=== PATIENT | male | born 1965 | race Two or more races ===

== ENCOUNTER 2021-11-24 14:15 | Inpatient (IN) | payer MEDICAID ==
[~2021-11-24] VITALS: Ht 167.6 cm; Wt 77.1 kg
[2021-11-24] MEDS ORDERED: ONDANSETRON HCL 4 MG/2 ML VIAL ONE (15:13)
[2021-11-24] MEDS ORDERED: MORPHINE SULFATE 4 MG/ML SYR/VIAL ONE (15:13)
[2021-11-24] MEDS ORDERED: ONDANSETRON HCL 4 MG/2 ML VIAL IV ONE (15:15)
[2021-11-24] MEDS ORDERED: MORPHINE SULFATE 4 MG/ML SYR/VIAL IV ONE (15:15)
[2021-11-24] MEDS ORDERED: LORazepam 2MG/ML-1ML VIAL IV ONE (15:45)
[2021-11-24 16:23] LABS: Basophils # (auto) 0.1 10 ^3/uL (0-0.2); Basophils % (auto) 0.5 % (0.0-2.0); Eosinophils # (auto) 0 10 ^3/uL (0-0.8); Eosinophils % (auto) 0.2 % (0.0-7.0); Hematocrit 43.5 % (41.0-53.0); Hemoglobin 14.5 g/dL (13.5-17.5); Lymphocytes % (auto) 10.7 % (10.0-50.0); Mean Corpuscular Hemoglobin 31.9 pg (28.0-32.0); Mean Corpuscular Hgb Conc. 33.3 g/dL (32.0-36.0); Mean Corpuscular Volume 95.8 fL (80.0-100.0); Monocytes # (auto) 0.8 10 ^3/uL (0-1.3); Monocytes % (auto) 4.1 % (0.0-12.0); Neutrophils # (auto) 15.9 10 ^3/uL (1.6-8.6); Neutrophils % (auto) 84.5 % (37.0-80.0); Red Blood Cells 4.54 10^6/uL (4.5-5.90); Red Cell Distribution Width 12.7 % (11.8-14.3); White Blood Cell 18.8 10^3/uL (4.4-10.8)
[2021-11-24 16:40] LABS: Albumin 3.9 g/dL (3.4-5.0); Calcium 8.5 mg/dL (8.5-10.1); Potassium 3.8 mmol/L (3.5-5.1)
[2021-11-24 16:41] LABS: Bilirubin, Total 0.4 mg/dL (0.2-1.0); Total Protein 7.2 g/dL (6.4-8.2)
[2021-11-24] MEDS ORDERED: ASPirin 81 mg TAB PO ONE (16:45)
[2021-11-24] MEDS ORDERED: cefTRIAXone 1GM/50ML D5W 50 ML IV ONE (16:45)
[2021-11-24] MEDS ORDERED: ENOXAPARIN SOD 80 MG/0.8ML SYRINGE SC ONE (17:00)
[2021-11-24] MEDS ORDERED: HYDROmorphone HCL 2 MG/ML VL/or syr IV ONE (17:15)
[2021-11-24] MEDS ORDERED: AZITHROMYCIN 500MG/ 250ML 250 ML IV ONE (18:15)
[2021-11-24] MEDS ORDERED: ACETAMINOPHEN 325 MG TAB PO PRN (19:00)
[2021-11-24] MEDS ORDERED: NITROGLYCERIN 0.4 MG SL TAB SL PRN (19:00)
[2021-11-24] MEDS ORDERED: DOCUSATE SOD 100 MG CAP PO PRN (19:00)
[2021-11-24] MEDS ORDERED: TEMAZEPAM 15 MG CAP PO PRN (19:00)
[2021-11-24] MEDS ORDERED: HYDROcodone-ACET 5/325MG TAB PO PRN (19:00)
[2021-11-24] MEDS ORDERED: ONDANSETRON HCL 4 MG/2 ML VIAL IV PRN (19:00)
[2021-11-24] MEDS ORDERED: MORPHINE SULFATE INJ 2 MG/ml SYRG IV PRN ×2 (19:00)
[2021-11-24] MEDS ORDERED: DEXTROSE (50%) 50ML SYRG IV PRN (19:00)
[2021-11-24 19:16] LABS: Lactic Acid w/Reflex 3.2 mmol/L (0.4-2.0)
[2021-11-24] MEDS ORDERED: METOPROLOL TARTRATE 1MG/1ML-5ML VIAL IV ONE ×2 (19:23→19:30)
[2021-11-24] MEDS ORDERED: AMIODARONE HCL (50 MG/ ML) 3 ML VIAL IV ONE (19:43)
[2021-11-24] MEDS ORDERED: AMIODARONE 450mg/250ml AE 250 ML IV ONE (19:46)
[2021-11-24] MEDS ORDERED: ACCU-CHEK COMFORT CURVE STRIP VI SCH (20:00)
[2021-11-24] MEDS ORDERED: AMIODARONE HCL 150 MG in D5W 5% 100 ML IV ONE (20:00)
[2021-11-24] MEDS ORDERED: InsuLIN REG 1unit/0.01ml Soln (100units/ml) SC SCH (20:00)
[2021-11-24] MEDS ORDERED: IOHEXOL 350 MG/ML 100ML IJ ONE ×2 (20:07→23:03)
[2021-11-24] MEDS ORDERED: AMIODARONE 450mg/250ml AE 250 ML IV SCH (20:15)
[2021-11-24] MEDS ORDERED: ASCORBIC ACID 500 MG TAB PO SCH (22:00)
[2021-11-24 22:46] VITALS: BP 106/70
[2021-11-24] MEDS ORDERED: fentaNYL CITRATE 100 MCG/2 ML VL ONE (22:59)
[2021-11-24] MEDS ORDERED: ATROPINE SULF 1 MG/10ml SYR ONE (22:59)
[2021-11-24] MEDS ORDERED: ANGIOMAX 250 MG VIAL IV ONE (22:59)
[2021-11-24] MEDS ORDERED: MIDAZOLAM HCL 2MG/2ML 2ml VIAL (1mg/ml) ONE (23:00)
[2021-11-24] MEDS ORDERED: SODIUM CHL 0.9% 50 ML ONE (23:00)
[2021-11-24] MEDS ORDERED: SUCCINYLCHOLINE CHLORIDE 20 MG/ML 10ML VIAL IV ONE (23:01)
[2021-11-24] MEDS ORDERED: ETOMIDATE (2MG/ML) 20ML VIAL IV ONE (23:01)
[2021-11-24] MEDS ORDERED: LIDOCAINE 2%HCL (LOCAL ANESTH.) INJ 10ml MDV ONE (23:03)
[2021-11-24] MEDS ORDERED: MIDAZOLAM DRIP 50 mg/50mL 50 ML IV ONE (23:18)
[2021-11-24 23:42] LABS: INR 1.05 (0.9-1.15); Partial Thromboplastin Time 27.8 sec (23.6-33.0)
[2021-11-24] MEDS ORDERED: HEPARIN SODIUM (PORCINE) 5000 UNITS/ML 1ML VIAL ONE (23:43)
[2021-11-25] MEDS ORDERED: IOHEXOL 350 MG/ML 100ML IJ ONE (00:06)
[2021-11-25] MEDS ORDERED: MIDAZOLAM DRIP 50 mg/50mL 50 ML IV SCH (00:08)
[2021-11-25] MEDS ORDERED: ATROPINE SULF 1 MG/10ml SYR ONE (00:16)
[2021-11-25] MEDS ORDERED: DOPamine 1600MCG/ML D5W 250 ML IV ONE (00:19)
[2021-11-25] MEDS ORDERED: NOREPINEPHRINE 8 MG/250ML KIT 0 ML IV ONE (00:23)
[2021-11-25] MEDS ORDERED: EPINEPHrine HCL 250 ML IV ONE (00:34)
[2021-11-25] MEDS ORDERED: SUCCINYLCHOLINE CHLORIDE 20 MG/ML 10ML VIAL IV ONE (04:45)
[2021-11-25] MEDS ORDERED: ETOMIDATE (2MG/ML) 20ML VIAL IV ONE (04:45)
[2021-11-25] MEDS ORDERED: ZINC SULFATE 220mg CAP or TAB PO SCH (10:00)
[2021-11-25] MEDS ORDERED: MULTIPLE VITAMIN TAB PO SCH (10:00)
[2021-11-25] MEDS ORDERED: SODIUM BICARBONATE 8.4% INJ 50ML SYRINGE IV ONE (13:59)
[2021-11-25] MEDS ORDERED: EPINEPHrine HCL 1 MG/10 ML SYRG IV ONE (13:59)
[2021-11-25] MEDS ORDERED: ATROPINE SULF 1 MG/10ml SYR IV ONE (13:59)
== END 2021-11-25 00:44 | DRG 174 ==
LOC: EDBD 14:15 → ER 14:15 → TELE 18:52
PROVIDERS: ADMIT Internal Medicine; ATTEND Internal Medicine
PROC: 027136Z Dilation of Coronary Artery, Two Arteries with Three Drug-eluting Intraluminal Devices, Percutaneous Approach (ICD-10-PCS; principal; 2021-11-25)
PROC: 5A02210 Assistance with Cardiac Output using Balloon Pump, Continuous (ICD-10-PCS; 2021-11-25)
PROC: 5A12012 Performance of Cardiac Output, Single, Manual (ICD-10-PCS; 2021-11-25)
PROC: B2111ZZ Fluoroscopy of Multiple Coronary Arteries using Low Osmolar Contrast (ICD-10-PCS; 2021-11-25)
DX: I21.3 ST elevation (STEMI) myocardial infarction of unspecified site (principal); I46.9 Cardiac arrest, cause unspecified; J96.01 Acute respiratory failure with hypoxia; E11.21 Type 2 diabetes mellitus with diabetic nephropathy; E11.40 Type 2 diabetes mellitus with diabetic neuropathy, unspecified; I47.2 Ventricular tachycardia; E11.65 Type 2 diabetes mellitus with hyperglycemia; E78.5 Hyperlipidemia, unspecified; F10.10 Alcohol abuse, uncomplicated; F17.210 Nicotine dependence, cigarettes, uncomplicated; Z20.822 Contact with and (suspected) exposure to COVID-19; I10 Essential (primary) hypertension; J44.9 Chronic obstructive pulmonary disease, unspecified; Z86.73 Personal history of transient ischemic attack (TIA), and cerebral infarction without residual deficits; Z79.84 Long term (current) use of oral hypoglycemic drugs
CPT/HCPCS: 33967; 36415; 36600; 71045; 71275; 80053; 82805; 82962; 83605; 84484; 85025; 85610; 85730; 86850; 86900; 86901; 87040; 92928; 92929; 92950; 93005; 93454; 94002; 96365; 96375; 99152; 99153; C1874; C1887; G0378; J0171; J0330; J0696; J2001; J2250; J2405; J7060